=== PATIENT | female | born 1980 | race Caucasian/White ===

== ENCOUNTER 2018-01-10 16:06 | Emergency (ER) | payer BC ==
[2018-01-10] MEDS ORDERED: TORAdol 30 mg Injection IM ONE (16:37)
--- NOTE | 2018-01-10 16:44 | ERPHSYRPT ---
- History of Present Illness Time Seen by Provider: 01/10/18 16:40 Source: patient Patient Subjective Stated Complaint: PT states "I Stood up and it felt like bubble wrap in my lower back. I went to [facility] last night and they did nothing except give me a muscle relaxer shot that did nothing, I did not get any scans or anything." Triage Nursing Assessment: Pt alert and oriented X 3, skin pwd. PT ambulates slowly with a hunched over gait, able to speak in clear full sentences. PT flinches when lower back is palpated. Physician History: 37-year-old morbidly obese white female arrives with complaint of pain in the low back midline lumbosacral region symptoms for 2 days. She states she sat up 2 days ago felt like she had bubble wrap in her back she apparently had been seen and [facility] yesterday she states she was concerned she only got an injection of muscle relaxants. She states that no radiology studies were done. She does state that patient has not had a recent CT of her abdomen secondary to gallbladder about 3 weeks ago and the ER physician apparently had a referred to that. Patient is not having any urine symptoms no hematuria she is moving all extremities. Past medical history includes asthma in the distant past, high blood pressure. Past surgical history includes cholecystectomy, appendectomy, foot surgery, bilateral ear surgery, hysterectomy. Social history is positive for tobacco. Timing/Duration: day(s) (2 days) Severity: moderate Modifying Factors: Improves With: movement Associated Symptoms: other (low back pain for 2 days), No nausea, No vomiting, No abdominal pain, No shortness of breath, No heartburn, No diaphoresis, No cough, No chills, No chest pain, No fever, No headaches, No loss of appetite, No malaise, No rash, No syncope, No seizure, No weakness Allergies/Adverse Reactions: morphine Allergy (Intermediate, Verified 01/10/18 16:26) Hives Home Medications: Hctz/Triamterene 25/37.5 mg [Maxzide 25MG] 1 tab PO DAILY 01/10/18 [History] Lisinopril 10 mg [Zestril 10 MG] 10 mg PO DAILY 01/10/18 [History] Hx Tetanus, Diphtheria Vaccination/Date Given: Yes Hx Influenza Vaccination/Date Given: No Hx Pneumococcal Vaccination/Date Given: No Immunizations Up to Date: Yes - Review of Systems Constitutional: No Fever, No Chills Eyes: No Symptoms Ears, Nose, & Throat: No Symptoms Respiratory: No Cough, No Dyspnea Cardiac: No Chest Pain, No Edema, No Syncope Abdominal/Gastrointestinal: No Abdominal Pain, No Nausea, No Vomiting, No Diarrhea Genitourinary Symptoms: No Dysuria Musculoskeletal: Back Pain Skin: No Rash Neurological: No Dizziness, No Focal Weakness, No Sensory Changes Psychological: No Symptoms Endocrine: No Symptoms All Other Systems: Reviewed and Negative - Past Medical History Pertinent Past Medical History: Yes Neurological History: No Pertinent History ENT History: No Pertinent History Cardiac History: Hypertension Respiratory History: Asthma Endocrine Medical History: No Pertinent History Musculoskeletal History: No Pertinent History GI Medical History: No Pertinent History History: No Pertinent History Psycho-Social History: No Pertinent History Female Reproductive Disorders: No Pertinent History - Past Surgical History Past Surgical History: Yes Other Surgical History: starr. appendectomy. left ankle. bilat ear. hysterectomy. 3X . tonsils. adnoids - Social History Smoking Status: Current every day smoker How long have you smoked: 15 years Exposure to second hand smoke: Yes Drug Use: none Patient Lives Alone: No - Female History Hx Last Menstrual Period: hysterectomy Hx Now: No - Nursing Vital Signs Nursing Vital Signs: Initial Vital Signs Temperature 97.9 F 01/10/18 16:14 Pulse Rate 110 H 01/10/18 16:14 Respiratory Rate 20 01/10/18 16:14 Blood Pressure 137/108 01/10/18 16:14 O2 Sat by Pulse Oximetry 98 01/10/18 16:14 Pain Scale Pain Intensity [] 7 Pain Intensity 7 - Physical Exam General Appearance: mild distress, alert Eye Exam: PERRL/EOMI, eyes nml inspection Ears, Nose, Throat Exam: normal ENT inspection, TMs normal, pharynx normal, moist mucous membranes Neck Exam: normal inspection, non-tender, supple, full range of motion Respiratory Exam: normal breath sounds, lungs clear, No respiratory distress Cardiovascular Exam: regular rate/rhythm, normal heart sounds, normal peripheral pulses Gastrointestinal/Abdomen Exam: soft, normal bowel sounds, No tenderness, No mass Back Exam: other (pain midline low lumbar region with palpation and movement) Extremity Exam: normal inspection, normal range of motion, pelvis stable Neurologic Exam: alert, oriented x 3, cooperative, vice president diversity II-XII nml as tested, normal mood/affect, nml cerebellar function, nml station & gait, sensation nml, No motor deficits Skin Exam: normal color, warm, dry, No rash Lymphatic Exam: No adenopathy SpO2 Interpretation: normal (98%) SpO2: 98 Oxygen Delivery: Room Air - Course Nursing assessment & vital signs reviewed: Yes - Radiology Exams L-Spine X-ray Interpretation: Discussed w/ radiologist (x-ray lumbar spine: 5 lumbar vertebral segments with vertebral body heights and disc spaces maintained, mild bilateral L5-S1 degenerative facet arthropathy, minimal vascular calcifications and cholecystectomy clips. No other bony, articular, or soft tissue abnormalities) Ordered Tests: Active Orders 24 hr Category Date Time Status LUMBAR LIMITED (2 OR 3 VIEWS) Stat Exams 01/10/18 16:39 Completed CULTURE,URINE Stat Lab 01/10/18 16:50 Received UA W/RFX UR CULTURE Stat Lab 01/10/18 16:50 Completed Urine Triage Profile Stat Lab 01/10/18 16:50 Received Medication Summary Discontinued Medications Generic Name Dose Route Start Last Admin Trade Name Freq PRN Reason Stop Dose Admin Ketorolac Tromethamine 60 mg 01/10/18 16:37 01/10/18 17:12 Toradol 30 Mg Injection IM 01/10/18 16:38 60 mg STAT ONE Administration Ketorolac Tromethamine Confirm 01/10/18 17:11 Toradol 30 Mg Injection Administered 01/10/18 17:12 Dose 60 mg .ROUTE .STK-MED ONE Lorazepam 1 mg 01/10/18 17:53 01/10/18 18:01 Ativan 1 Mg PO 01/10/18 17:54 Not Given STAT ONE Lab/Rad Data: Laboratory Results 01/10/18 Range/Units 16:50 Urine Color YELLOW (YELLOW) Urine Appearance SLIGHTLY CLOUDY (CLEAR) Urine pH 5.0 (5-6) Ur Specific [place] 1.017 (1.005-1.025) Urine Protein NEGATIVE (Negative) Urine Ketones NEGATIVE (NEGATIVE) Urine Blood NEGATIVE (0-5) Maurice/ul Urine Nitrite POSITIVE (NEGATIVE) Urine Bilirubin NEGATIVE (NEGATIVE) Urine Urobilinogen 2 (0-1) mg/dL Ur Leukocyte Esterase NEGATIVE (NEGATIVE) Urine WBC (Auto) 3-5 (0-5) /HPF Urine RBC (Auto) 0-2 (0-2) /HPF U Epithel Cells (Auto) RARE (FEW) /HPF Urine Bacteria (Auto) FEW (NEGATIVE) /HPF Urine Mucus (Auto) SLIGHT (NEGATIVE) /HPF Urine Culture Reflexed YES (NO) Urine Glucose NEGATIVE (NEGATIVE) mg/dL - Progress Progress: improved Progress Note: 01/10/18 17:43 This is a 37-year-old white female with history of asthma, high blood pressure who is morbidly obese she arrives with complaint of pain in the low lumbosacral area symptoms for 2 days. Patient apparently had been seen at [facility] she tells me that she had not had any x-rays that she was given an injection of a muscle relaxer and discharged. She apparently did not feel like she had received appropriate treatment she presented here. I went ahead and ordered an x-ray of her back( lumbar spine), a urinalysis ,and a urine drug screen . Patient's records were obtained from [facility] in ER visit dated was obtained chart was reviewed I did see that the patient did present to [facility] she was given an injection of Robaxin, And although patient apparently had told me she did not have x-rays there appears to be a x-ray report on the chart which I saw after the patient had had her x-rays here which showed a x-ray of the lumbar spine dated 01/09/2018 which was remarkable for mild facet osteoarthritis in the lower lumbar spine this was also compared to CT dated 12/08/2017 of the abdomen which showed no acute osseous abnormality as well as mild lumbar spondylosis. Patient was apparently given a prescription for Relafen, Ultram, and Robaxin at [facility] she has these prescription with her. Patient is given a shot of Toradol 60 mg IM here in the emergency room, She states she is improving, X-ray of the lumbar spine obtained here today shows 5 lumbar vertebral segments with vertebral body height and disc spaces maintained. There is mild bilateral L5-S1 degenerative facet arthropathy. Minimal vascular calcification, and cholecystectomy clips. There are no other bony, articular, or soft tissue abnormalities Patient's urine is essentially normal there 3-5 white cells negative leukocyte esterase and positive nitrites Culture is pending I'm awaiting urine drug screen results. Anticipate discharge. Patient to continue medications as prescribed from [facility] yesterday patient is to fill the scripts and take them as prescribed. She is to follow-up with her family doctor if she does not have one we will provide her with a list of physicians accepting patients. She is to return for acute distress or for severe symptoms. - Departure Time of Disposition: 18:04 Departure Disposition: Home Clinical Impression: Back pain Qualifiers: Back pain location: low back pain Chronicity: acute Back pain laterality: midline Sciatica presence: without sciatica Qualified Code(s): M54.5 - Low back pain Lumbar strain Qualifiers: Encounter type: initial encounter Qualified Code(s): S39.012A - Strain of muscle, fascia and tendon of lower back, initial encounter Condition: Fair Critical Care Time: No Referrals: [facility] [Primary Care Provider] - Instructions: Low Back Pain (DC) Additional Instructions: Return home. Fill the prescriptions for Relafen, Robaxin, and tramadol provided to you by [facility] yesterday. Follow-up with your family doctor or (list) if symptoms are worse, no better in 24-48 hours, or persist longer than one week. Return for acute distress or for severe symptoms.
--- NOTE | 2018-01-10 17:08 | XRAY ---
Indication: Low back pain 3 days. No known injury. Comparison: None 3 views of the lumbar spine demonstrates 5 lumbar vertebral segments with vertebral body heights and disc spaces maintained. Mild bilateral L5-S1 degenerative facet arthropathy, minimal vascular calcifications, and cholecystectomy clips. No other bony, articular, or soft tissue abnormalities.
[2018-01-10] MEDS ORDERED: TORAdol 30 mg Injection ONE (17:11)
[2018-01-10 17:38] LABS: Appearance SLIGHTLY CLOUDY (CLEAR); Bilirubin NEGATIVE (NEGATIVE); Blood NEGATIVE Ery/ul (0-5); Glucose NEGATIVE (NEGATIVE); Ketones NEGATIVE (NEGATIVE); Leukocyte Esterase NEGATIVE (NEGATIVE); Nitrite POSITIVE (NEGATIVE); Protein,Urine Dip NEGATIVE (Negative); Specific Gravity 1.017 (1.005-1.025); Urobilinogen 2 mg/dL (0-1)
[2018-01-10] MEDS ORDERED: Ativan 1 MG PO ONE (17:53)
[2018-01-10 17:55] VITALS: BP 99/70; PULSE 80
[2018-01-10 18:07] VITALS: O2SAT 98
[2018-01-10 18:22] LABS: Amphetamine,Urine NEGATIVE (NEGATIVE); Barbiturate,Urine NEGATIVE (NEGATIVE); Benzodiazepine,Urine NEGATIVE (NEGATIVE); Cocaine,Urine NEGATIVE (NEGATIVE); Methadone,Urine NEGATIVE (NEGATIVE); Opiate,Urine NEGATIVE (NEGATIVE); PCP,Urine NEGATIVE (NEGATIVE); THC,Urine NEGATIVE (NEGATIVE)
== END 2018-01-10 18:29 | disposition home or self-care (01) ==
LOC: ED 16:06
DX: M54.5 Low back pain (principal); S39.012A Strain of muscle, fascia and tendon of lower back, initial encounter; I10 Essential (primary) hypertension; J45.909 Unspecified asthma, uncomplicated; E66.01 Morbid (severe) obesity due to excess calories; Z79.899 Other long term (current) drug therapy; Z72.0 Tobacco use
CPT/HCPCS: 72100; 80307; 81001; 87077; 87086; 87186; 96372; 99284; J1885

== ENCOUNTER 2020-10-07 13:49 | Emergency (ER) | payer BC ==
[2020-10-07] MEDS ORDERED: Compazine 10 MG/2 ML IM ONE (14:13)
[2020-10-07] MEDS ORDERED: DEMEROL 50 MG IM ONE (14:14)
--- NOTE | 2020-10-07 14:20 | ERPHSYRPT ---
- History of Present Illness Time Seen by Provider: 10/07/20 14:05 Source: patient, family Exam Limitations: no limitations Patient Subjective Stated Complaint: patient states she has had a headache for 24 hours starting at 0200 10/06, states she has also been having nausea and vomiting starting at 1100 10/06 Triage Nursing Assessment: Patient presents to ED with severe headache rating pain 10/10. States she has had nausea and vomiting. Physician History: This is a 39-year-old obese white female who has a history of hypertension and has never been diagnosed with a migraine headache. However, she presents to the emergency department with a headache that is generalized in location. It is aching and throbbing. It is associated with nausea and vomiting. She is light sensitive and noise sensitive. Patient did not take her blood pressure medication this morning and her emergency department initial blood pressure is 160s over 110s. Patient denies chest pain. She denies shortness of breath. She has no abdominal pain. She has no diarrhea. She has had no fevers. She denies neck pain. She denies head trauma Timing/Duration: yesterday Quality: aching, throbbing Head Pain Location: global Severity of Pain-Max: moderate Severity of Pain-Current: moderate Recent Head Trauma: no recent headache/trauma Modifying Factors: Improves With: exposure to light, noise Associated Symptoms: nausea/vomiting, sensitive to light, No confusion, No dizziness, No fever/chills, No light-headedness, No loss of consciousness Previous symptoms: no prior history Allergies/Adverse Reactions: morphine Allergy (Intermediate, Verified 10/07/20 14:09) Hives Home Medications: Lisinopril 10 mg [Zestril 10 MG] 10 mg PO DAILY 01/10/18 [History] Fluoxetine HCl 20 mg [Prozac 20 MG] 40 mg PO DAILY 10/07/20 [History] Furosemide [Lasix] 20 mg PO DAILY 10/07/20 [History] Loratadine 10 mg [Claritin 10 mg] 10 mg PO DAILY 10/07/20 [History] Omeprazole Magnesium [Prilosec Otc] 20 mg PO DAILY 10/07/20 [History] Potassium Gluconate [Potassium] 99 mg PO DAILY 10/07/20 [History] Hx Tetanus, Diphtheria Vaccination/Date Given: Yes Hx Influenza Vaccination/Date Given: No Hx Pneumococcal Vaccination/Date Given: No Immunizations Up to Date: Yes Travel Risk - International Travel Have you traveled outside of the country in past 3 weeks: No - Coronavirus Screening Are you exhibiting any of the following symptoms?: No Close contact with a COVID-19 positive Pt in past 14-21 Days: No - Vaccine Status Have you recieved a Covid-19 vaccination: No - Review of Systems Constitutional: No Symptoms Eyes: No Symptoms Ears, Nose, & Throat: No Symptoms Respiratory: No Symptoms Cardiac: No Symptoms Abdominal/Gastrointestinal: No Symptoms Genitourinary Symptoms: No Symptoms Musculoskeletal: No Symptoms Skin: No Symptoms Neurological: Headache Psychological: No Symptoms Endocrine: No Symptoms Hematologic/Lymphatic: No Symptoms Immunological/Allergic: No Symptoms All Other Systems: Reviewed and Negative - Past Medical History Pertinent Past Medical History: Yes Neurological History: No Pertinent History ENT History: No Pertinent History Cardiac History: Hypertension Respiratory History: Asthma Endocrine Medical History: No Pertinent History Musculoskeletal History: No Pertinent History GI Medical History: No Pertinent History History: No Pertinent History Psycho-Social History: Depression Female Reproductive Disorders: No Pertinent History - Past Surgical History Past Surgical History: Yes Other Surgical History: starr. appendectomy. left ankle. bilat ear. hysterectomy. 3X . tonsils. adnoids - Social History Smoking Status: Current every day smoker How long have you smoked: 15 years Exposure to second hand smoke: Yes Drug Use: none Patient Lives Alone: No - Female History Hx Now: No (hysterectomy) - Nursing Vital Signs Nursing Vital Signs: Initial Vital Signs Temperature 97.2 F 10/07/20 13:54 Pulse Rate 93 H 10/07/20 13:54 Blood Pressure 167/118 10/07/20 13:54 O2 Sat by Pulse Oximetry 96 10/07/20 13:54 Pain Scale Pain Intensity 10 - Physical Exam General Appearance: no apparent distress, alert, anxiety, obese Eye Exam: PERRL/EOMI, eyes nml inspection Ears, Nose, Throat Exam: normal ENT inspection, moist mucous membranes Neck Exam: normal inspection, non-tender, supple, full range of motion Respiratory Exam: normal breath sounds, lungs clear, airway intact, No chest tenderness, No respiratory distress Cardiovascular Exam: regular rate/rhythm, normal heart sounds, normal peripheral pulses Gastrointestinal/Abdominal Exam: soft, normal bowel sounds, No tenderness Back Exam: normal inspection, normal range of motion, No CVA tenderness, No vertebral tenderness Extremity Exam: normal inspection, normal range of motion, pelvis stable Mental Status Exam: alert, oriented x 3, cooperative final inspector paper Exam: normal hearing, normal speech, PERRL Coordination/Gait Exam: normal finger to nose, normal gait, normal cerebellar function Motor/Sensory Exam: no motor deficit, no sensory deficit, no pronator drift Skin Exam: normal color, warm, dry Lymphatic Exam: No adenopathy SpO2 Interpretation: normal SpO2: 96 O2 Delivery: Room Air - Course Nursing assessment & vital signs reviewed: Yes Ordered Tests: Active Orders 24 hr Category Date Time Status HEAD WITHOUT CONTRAST [CT] Stat Exams 10/07/20 14:13 Completed Medication Summary Discontinued Medications Generic Name Dose Route Start Last Admin Trade Name Favioq PRN Reason Stop Dose Admin Meperidine HCl 50 mg 10/07/20 14:14 10/07/20 14:31 Demerol 50 Mg IM 10/07/20 14:15 50 mg STAT ONE Administration Meperidine HCl Confirm 10/07/20 14:29 Demerol 50 Mg Administered 10/07/20 14:30 Dose 50 mg .ROUTE .STK-MED ONE Prochlorperazine Edisylate 10 mg 10/07/20 14:13 10/07/20 14:31 Compazine 10 Mg/2 Ml IM 10/07/20 14:14 10 mg STAT ONE Administration Prochlorperazine Edisylate Confirm 10/07/20 14:29 Compazine 10 Mg/2 Ml Administered 10/07/20 14:30 Dose 10 mg .ROUTE .STK-MED ONE - Progress Progress: improved, re-examined Air Movement: good Progress Note: 10/07/20 15:10 CAT scan of the head without contrast shows no acute intracranial abnormality. Blood Culture(s) Obtained: No Antibiotics given: No Counseled pt/family regarding: diagnosis, need for follow-up, rad results - Departure Departure Disposition: Home Clinical Impression: Headache, Hypertension Condition: Stable Critical Care Time: No Referrals: [facility] [NON-STAFF PHY W/O PRIVILEGES] - Additional Instructions: Take your blood pressure medication as prescribed. Follow-up with your primary care physician for further management. Prescriptions: Ondansetron ODT 4 MG [Zofran Odt 4 mg] 4 mg PO Q6H PRN PRN #10 tab.rapdis PRN Reason: Vomiting
[2020-10-07] MEDS ORDERED: DEMEROL 50 MG ONE (14:29)
[2020-10-07] MEDS ORDERED: Compazine 10 MG/2 ML ONE (14:29)
--- NOTE | 2020-10-07 14:57 | XRAY ---
Indication: Headache. Multiple contiguous axial images obtained through the head without contrast. Comparison: None Normal appearing brain parenchyma, ventricles, and bony calvarium. Visualized paranasal sinuses and mastoid air cells are clear. Impression: Normal CT head without contrast exam.
[2020-10-07 15:13] VITALS: O2SAT 96
[2020-10-07 15:15] VITALS: BP 134/106; PULSE 87
== END 2020-10-07 15:30 | disposition home or self-care (01) ==
LOC: ED 13:49
DX: R51.9 Headache, unspecified (principal); R59.1 Generalized enlarged lymph nodes; I10 Essential (primary) hypertension
CPT/HCPCS: 70450; 96372; 99284; J2175